=== PATIENT | female | born 1945 | race Caucasian/White ===

== ENCOUNTER → 2017-08-13 | Outpatient (CLI) | payer MEDICARE ==
[~2017-08-13] MED LIST: AMLO1CAP8 PO; ASPI81TA50 PO; CLON0.1T12 PO; HYDR12.58 PO; LEVO25TA4 PO; LISI40TA PO; POTA20TA4 PO; SIMV20TA3 PO
--- NOTE | 2017-08-13 15:49 | RAD ---
DATE: 08/13/2017 EXAM: MAMMO ABDI screening BILATERAL HISTORY: Routine screening. Patient had a bruise from injury over last 2 months , bruises mostly resolved but a small lump remains on the left breast. COMPARISON: Previous mammogram from 2015 and 2014 This study was interpreted with the benefit of Computerized Aided Detection (CAD). FINDINGS: 2-D and 3-D tomosynthesis imaging was performed in CC and MLO projections. Breast density category C: There breasts are heterogeneously dense, which may obscure small masses. The skin and nipples are within normal limits. Benign bilateral calcifications. No suspicious Sensorcaine, spiculated mass or areas of architectural distortion. No mammographic abnormality noted in the region of palpable abnormality in the left breast at the site marked by BB. IMPRESSION: No mammographic evidence of malignancy. Stable mammogram.. BI-RADS CATEGORY: 2 BENIGN FINDING(S) RECOMMENDED FOLLOW-UP: 12M 12 MONTH FOLLOW-UP PQRS compliance statement: Patient information was entered into a reminder system with a target due date 08/13/2017 for the next mammogram. Mammography is a sensitive method for finding small breast cancers, but it does not detect them all and is not a substitute for careful clinical examination. A negative mammogram does not negate a clinically suspicious finding and should not result in delay in biopsying a clinically suspicious abnormality. "Our facility is accredited by the [employer] Mammography [employer]."
--- NOTE | 2017-08-13 15:49 | RAD ---
Ultrasound left breast above indication: Left breast injury 2 months ago. Had a bruise around 9-10:00 position. No bruise seen today. Technique: Grayscale ultrasound images of the area of concern from 9:00 to 11:00 position. Comparison: Same day mammogram Findings: No solid or cystic lesions identified in the area of concern in the left breast. Skin is within normal limits. No hematoma. Impression: No sonographic abnormality appreciated in the left breast in the region of palpable abnormality. Clinically correlate. BI-RADS 2: Benign findings.
== END | disposition home or self-care (01) ==
LOC: MAMMO 07-14 09:25
PROVIDERS: ATTEND Family Medicine
DX: Z12.31 Encounter for screening mammogram for malignant neoplasm of breast (principal); N64.4 Mastodynia
CPT/HCPCS: 76641; G0204; G0279; 77062; 77066

== ENCOUNTER → 2019-04-08 | Outpatient (CLI) | payer MEDICARE ==
--- NOTE | 2019-04-09 14:43 | RAD ---
DATE: 06/26/2015, 07/04/2015, 08/13/2017, 04/08/2019 EXAM: MAMMO ABDI SCREENING BILATERAL HISTORY: Routine screening evaluation COMPARISON: 06/26/2015, 07/04/2015, 08/13/2017, 04/08/2019 This study was interpreted with the benefit of Computerized Aided Detection (CAD). FINDINGS: Breast Density: SCATTERED The breast parenchyma shows scattered fibroglandular densities. Breast parenchyma level B. Benign calcifications are present. The parenchymal pattern appears stable. No suspicious masses, microcalcifications or architectural distortion is present to suggest malignancy in either breast. The visualized axillae are unremarkable IMPRESSION: No mammographic evidence for malignancy BI-RADS CATEGORY: 2 BENIGN FINDING(S) RECOMMENDED FOLLOW-UP: 12M 12 MONTH FOLLOW-UP PQRS compliance statement: Patient information was entered into a reminder system with a target due date for the next mammogram. Mammography is a sensitive method for finding small breast cancers, but it does not detect them all and is not a substitute for careful clinical examination. A negative mammogram does not negate a clinically suspicious finding and should not result in delay in biopsying a clinically suspicious abnormality. "Our facility is accredited by the [employer] Mamm[employer]."
== END | disposition home or self-care (01) ==
LOC: MAMMO 09:20
PROVIDERS: ATTEND Family Medicine
DX: Z12.31 Encounter for screening mammogram for malignant neoplasm of breast (principal); N64.89 Other specified disorders of breast
CPT/HCPCS: 77063; 77067

== ENCOUNTER → 2021-04-16 | Outpatient (CLI) | payer MEDICARE ==
[~2021-04-16] MED LIST changes: -AMLO1CAP8 PO; +AMLO1CAP9 PO; -LISI40TA PO; +LISI40TA6 PO; +SIMV20TA18 PO; -SIMV20TA3 PO
--- NOTE | 2021-04-16 11:19 | RAD ---
EXAM: Bilateral digital screening mammogram with tomosynthesis. HISTORY: 75-year-old female presents for screening mammography. TECHNIQUE: Full-field digital craniocaudal and mediolateral oblique 2D and 3D tomosynthesis images of both breasts are obtained for evaluation. Computer aided detection was applied. COMPARISON: 04/08/2019 BREAST PARENCHYMAL DENSITY: Level C - Heterogeneously dense. FINDINGS: There is no new suspicious mass, microcalcification or region of architectural distortion. There are stable benign areas of asymmetry and nodularity within both breasts, including and nodular asymmetry at the 3:00 position of the right breast at mid depth. The long-term stability favors ange hammer. IMPRESSION: BI-RADS Category 2: Benign finding(s). RECOMMENDATION: Annual mammography is recommended. If your mammogram demonstrates that you have dense breast tissue, which could hide abnormalities, and if you have other risk factors for breast cancer that have been identified, you might benefit from s upplemental screening tests that may be suggested by your ordering physician. Dense breast tissue, i n and of itself, is a relatively common condition. This information is not provided to cause undue c oncern, but rather to raise your awareness and to promote discussion with your physician regarding th e presence of other risk factors, in addition to dense breast tissue. A report of your mammography re sults will be sent to you and your physician. You should contact your physician if you have any ques tions or concerns regarding this report. Mammography is a sensitive method for finding small breast cancers, but it does not detect them all a nd is not a substitute for careful clinical examination. A negative mammogram does not negate a clin ically suspicious finding and should not result in delay in biopsying a clinically suspicious abnorma lity. PQRS compliance statement - Patient information was entered into a reminder system with a target due date for the next mammogram. "Our facility is accredited by the [employer]ammography [employer]." Electronically signed by: Teresa Morales MD (04/16/2021 11:16 AM) [id number]
== END ==
LOC: MAMMO 10:28
PROVIDERS: ATTEND Family Medicine
DX: Z12.31 Encounter for screening mammogram for malignant neoplasm of breast (principal)
CPT/HCPCS: 77063; 77067